=== PATIENT | male | born 2000 | race Two or more races ===

== ENCOUNTER 2021-08-06 22:12 | Emergency (ER) | payer OTHER ==
[~2021-08-06] VITALS: Ht 182.9 cm; Wt 90.7 kg
[2021-08-06 22:26] VITALS: BP 140/79
== END 2021-08-07 01:41 | disposition home or self-care (01) ==
LOC: EDBD 22:12 → ER 22:12
DX: F10.129 Alcohol abuse with intoxication, unspecified (principal); Y90.8 Blood alcohol level of 240 mg/100 ml or more